=== PATIENT | male | born 1980 | race Caucasian/White ===

== ENCOUNTER 2016-05-17 10:23 | Outpatient (CLI) | payer OTHER | END 2016-05-17 10:24 | disposition home or self-care (01) | DX: Z00.00 Encounter for general adult medical examination without abnormal findings (principal); K58.9 Irritable bowel syndrome, unspecified ==

== ENCOUNTER 2017-09-28 09:34 | Outpatient (CLI) | payer OTHER ==
[2017-09-28 13:11] LABS: BASOPHILS % (AUTO) 0.5 %; EOSINOPHILS % (AUTO) 0.7 %; LYMPHOCYTES # (AUTO) 1.7 10^3/uL (1.5-3.5); LYMPHOCYTES % (AUTO) 26.7 %; MEAN CORPUSCULAR HEMOGLOBIN 30.4 pg (27.0-31.0); MEAN CORPUSCULAR HGB CONC 34.7 g/dL (32.0-36.0); MEAN CORPUSCULAR VOLUME 87.6 fL (80.0-94.0); MEAN PLATELET VOLUME 11.2 fL (7.4-11.4); MONOCYTES # (AUTO) 0.5 10^3/uL (0.0-1.0); MONOCYTES % (AUTO) 7.8 %; NEUTROPHILS # (AUTO) 4.1 10^3/uL (1.5-6.6); NEUTROPHILS % (AUTO) 64.3 %; PLT - PLATELET COUNT 148 10^3/uL (130-450); RED BLOOD COUNT 5.58 10^6/uL (4.70-6.10); WHITE BLOOD COUNT 6.3 x10^3/uL (4.8-10.8)
[2017-09-28 13:33] LABS: ALBUMIN 4.3 g/dL (3.2-5.5); ALBUMIN/GLOBULIN RATIO 1.5 (1.0-2.2); ALKALINE PHOSPHATASE 63 IU/L (42-121); ALT ALANINE AMINOTRANSFERASE 24 IU/L (10-60); AST ASPARTATE AMINOTRANSFERASE 29 IU/L (10-42); BILIRUBIN,TOTAL 0.8 mg/dL (0.2-1.0); BUN - BLOOD UREA NITROGEN 14 mg/dL (6-20); CALCIUM 9.1 mg/dL (8.5-10.3); CARBON DIOXIDE - CO2 23 mmol/L (21-32); CHLORIDE 104 mmol/L (101-111); CHOL/HDL RATIO 4.8 (<5.0); CHOLESTEROL 171 mg/dL; CREATININE 0.9 mg/dL (0.6-1.2); GFR - MDRD 94 (>89); GLUCOSE 127 mg/dL (70-100); HDL CHOLESTEROL 36 mg/dL; SODIUM 136 mmol/L (135-145); TOTAL PROTEIN 7.2 g/dL (6.7-8.2)
[2017-09-28 13:55] LABS: LDL CHOLESTEROL,DIRECT 68 mg/dL; LDLD/HDL RATIO 1.9 (<3.6)
[2017-10-02 11:27] LABS: HB2 TOTAL 18.9 g/dL; HEMOGLOBIN A1C 0.61 g/dL; HEMOGLOBIN A1C % 5.1 % (4.6-6.2)
== END 2017-09-28 09:35 | disposition home or self-care (01) ==
LOC: LAB.WCP 09:34
PROVIDERS: ATTEND Physician Assistant Medical
DX: Z00.00 Encounter for general adult medical examination without abnormal findings (principal); R73.9 Hyperglycemia, unspecified
CPT/HCPCS: 36415; 80053; 80061; 83036; 83721; 84443; 85025

== ENCOUNTER 2019-06-02 07:31 | Outpatient (CLI) | payer OTHER ==
[2019-06-02 12:09] LABS: BASOPHILS % (AUTO) 0.7 %; EOSINOPHILS # (AUTO) 0.1 10^3/uL (0.0-0.7); EOSINOPHILS % (AUTO) 1.5 %; HGB - HEMOGLOBIN 15.8 g/dL (14.0-18.0); LYMPHOCYTES # (AUTO) 1.5 10^3/uL (1.5-3.5); LYMPHOCYTES % (AUTO) 33.2 %; MEAN CORPUSCULAR HEMOGLOBIN 30.6 pg (27.0-31.0); MEAN CORPUSCULAR HGB CONC 33.7 g/dL (32.0-36.0); MEAN CORPUSCULAR VOLUME 90.9 fL (80.0-94.0); MEAN PLATELET VOLUME 12.7 fL (7.4-11.4); MONOCYTES # (AUTO) 0.4 10^3/uL (0.0-1.0); MONOCYTES % (AUTO) 9.2 %; NEUTROPHILS # (AUTO) 2.5 10^3/uL (1.5-6.6); NEUTROPHILS % (AUTO) 55.2 %; PLT - PLATELET COUNT 168 10^3/uL (130-450); RED BLOOD COUNT 5.16 10^6/uL (4.70-6.10); RED CELL DISTRIBUTION WIDTH 12.3 % (12.0-15.0); WHITE BLOOD COUNT 4.6 x10^3/uL (4.8-10.8)
[2019-06-02 13:04] LABS: ALBUMIN 4.1 g/dL (3.2-5.5); ALBUMIN/GLOBULIN RATIO 1.5 (1.0-2.2); ALKALINE PHOSPHATASE 47 IU/L (42-121); ALT ALANINE AMINOTRANSFERASE 23 IU/L (10-60); AST ASPARTATE AMINOTRANSFERASE 22 IU/L (10-42); BILIRUBIN,TOTAL 0.8 mg/dL (0.2-1.0); BUN - BLOOD UREA NITROGEN 14 mg/dL (6-20); CALCIUM 8.9 mg/dL (8.5-10.3); CARBON DIOXIDE - CO2 25 mmol/L (21-32); CHLORIDE 103 mmol/L (101-111); CHOL/HDL RATIO 3.5 (<5.0); CHOLESTEROL 152 mg/dL; CREATININE 0.9 mg/dL (0.6-1.2); GFR - MDRD 93 (>89); GLUCOSE 100 mg/dL (70-100); HDL CHOLESTEROL 43 mg/dL; LDL CHOLESTEROL,CALCULATED 90 mg/dL; LDL/HDL RATIO 2.1 (<3.6); SODIUM 136 mmol/L (135-145); TOTAL PROTEIN 6.8 g/dL (6.7-8.2); VLDL CHOLESTEROL 19 mg/dL
== END 2019-06-02 23:59 | disposition home or self-care (01) ==
LOC: LAB.WCP 07:31
PROVIDERS: ATTEND Physician Assistant Medical
DX: Z00.00 Encounter for general adult medical examination without abnormal findings (principal)
CPT/HCPCS: 36415; 80053; 80061; 83721; 84443; 85025

== ENCOUNTER 2020-03-10 08:00 | Outpatient (CLI) | payer OTHER | END 2020-03-10 23:59 | disposition home or self-care (01) | LOC: LAB.WCP 08:00 | PROVIDERS: ATTEND Physician Assistant Medical | DX: Z11.1 Encounter for screening for respiratory tuberculosis (principal) | CPT/HCPCS: 36415; 81599; 86480 ==

== ENCOUNTER 2021-07-18 07:02 | Day surgery (SDC) | payer OTHER ==
[2021-07-18] MEDS ORDERED: LACTATED RINGERS 1,000 ML IV ONE (07:24)
--- NOTE | 2021-07-18 08:01 | ANESTHESIA ---
Pre-Anesthesia VS, & Labs - Diagnosis Hemorrhoids - Procedure Hemorrhoid banding Vital Signs: Temp Pulse Resp BP Pulse Ox 36.3 C L 85 14 129/75 97 07/18/21 07:16 07/18/21 07:16 07/18/21 07:16 07/18/21 07:16 07/18/21 07:16 Height: 5 ft 5 in Weight (kg): 73.9 kg Body Mass Index: 27.1 BMI Classification: Overweight - NPO >8 hours - Lab Results Lab results reviewed: Yes Home Medications and Allergies Diphenoxylate/Atropine [Lomotil] 1 mg ORAL QID PRN 02/04/14 Allergies/Adverse Reactions: Allergies Allergy/AdvReac Type Severity Reaction Status Date / Time No Known Drug Allergies Allergy Verified 07/18/21 06:14 Anes History & Medical History - Anesthetic History Anesthesia Complications: reports: No previous complications Family history of Anesthesia Complications: Denies Family history of Malignant Hyperthermia: Denies - Medical History Cardiovascular: reports: None Pulmonary: reports: None Gastrointestinal: reports: Chronic diarrhea, Hemorrhoids, Other Urinary: reports: None Musculoskeletal: reports: None Endocrine/Autoimmune: reports: None Skin: reports: None Smoking Status: Current every day smoker Psychosocial: reports: Alcohol (3-4 beers a night) - Surgical History General: reports: Colonoscopy Exam General: Alert, Oriented x3, Cooperative, No acute distress Dental: WNL Mouth Openin Fingerbreadth Neck Mobility: Normal Mallampati classification: II Plan Anesthesia Type: General, Total IV Consent for Procedure(s) Verified and Reviewed: Yes Code Status: Attempt Resuscitation ASA classification: 2-Mild systemic disease Is this case an emergency?: No
[2021-07-18] MEDS ORDERED: LIDOCAINE 2%-EPI 1:100000 20 ML MDV SUBQ ONE ×2 (08:24)
[2021-07-18] MEDS ORDERED: BUPIVACAINE 0.5% PF 30 ML VIAL INFIL ONE ×2 (08:24)
[2021-07-18] MEDS ORDERED: BUPIVACAINE 0.5% PF 10 ML VIAL ONE (08:30)
[2021-07-18] MEDS ORDERED: LIDOCAINE OINTMENT 5% 35.44 GM TUBE ONE (08:30)
[2021-07-18] MEDS ORDERED: LIDOCAINE 2%-EPI 1:100000 20 ML MDV ONE (08:30)
[2021-07-18] MEDS ORDERED: KETAMINE 500 MG/10 ML VIAL ONE (08:35)
[2021-07-18] MEDS ORDERED: MIDAZOLAM 2 MG/2 ML VIAL ONE (08:35)
[2021-07-18] MEDS ORDERED: PROPOFOL 200 MG/20 ML VIAL IVP ONE ×2 (08:35)
[2021-07-18] MEDS ORDERED: SODIUM CHLORIDE 0.9% 10 ML VIAL IVP ONE (08:35)
--- NOTE | 2021-07-18 09:06 | OPERATIVE REPORT ---
Operative Report - General Procedure Date: 07/18/21 Planned Procedure: Examination under anesthesia with hemorrhoid banding Pre-Op Diagnosis: Symptomatic internal hemorrhoids Procedure Performed: Examination under anesthesia with hemorrhoid banding Post Op Diagnosis: Same - Procedure Note Primary Surgeon: Gely Anesthesia Provider: ARYA Maldonado Anesthesia Technique: Local, MAC Pathology: None Estimated Blood Loss (mL): 2 Indications: Symptomatic internal hemorrhoids Findings: 1 very large prolapsing internal hemorrhoid at the 12:00 radian with the patient in lithotomy position. 2 other smaller complexes at 7:00 and 4:00 respectively. Complications: None apparent - Other Other Information/Narrative: After obtaining informed consent, the patient was brought to the operating room and placed in supine position on the operating table. Following successful induction of anesthesia, appropriate padding of all bony prominences, and placement of appropriate monitors, the legs were placed in candycane stirrups to create lithotomy position. The perianal region was prepped and draped in the standard surgical fashion. A timeout was held per scope protocol. All elements of the surgical safety checklist were followed before, during, and after this procedure. The anoscope with obturator was lubricated and placed in the patient's anal canal. I immediately visualize a large prolapsing complex of internal hemorrhoid tissue at the 12:00 radian. This tissue was grasped with a forcep and a band placed at its base. I was able to verify excellent placement of the tissue with distention and blanching of the involved hemorrhoid. Further evaluation revealed a second complex at the 7:00 radian that was significantly smaller than the first but also somewhat enlarged. This complex was grasped with a forcep and using the banding instrument the tissue was captured with in a single band. Again I was able to verify excellent placement. At the 4:00 radian there was significantly smaller complex but the tissue did appear to be somewhat distended and irritated. This was again grasped with the forceps and a third band applied to this area of the tissue. Again I was able to verify the band was in good position.There was no bleeding noted from the anal canal. Local anesthetic was then placed in the perianal tissue and a Gelfoam pack coated with lidocaine ointment placed in the anal canal.The obturator was removed and the slots aligned to allow access to 3 column internal hemorrhoids. The anoscope was removed and the procedure concluded.The patient tolerated the procedure well. She was allowed awaken from sedation and taken to the postanesthesia care unit in good condition.
[2021-07-18] MEDS ORDERED: MORPHINE 2 MG/ML CARPUJECT IVP PRN (09:07)
[2021-07-18] MEDS ORDERED: NALOXONE 0.4 MG/ML VIAL IVP PRN (09:07)
[2021-07-18] MEDS ORDERED: METOCLOPRAMIDE 10 MG/2 ML VIAL IVP PRN (09:07)
[2021-07-18] MEDS ORDERED: ATROPINE ABBOJECT 1 MG/10 ML SYRINGE IVP PRN (09:07)
[2021-07-18] MEDS ORDERED: HYDROmorphone 0.5 MG/0.5 ML SYRINGE IVP PRN (09:07)
[2021-07-18] MEDS ORDERED: ePHEDrine 50 MG/ML VIAL IVP PRN (09:07)
[2021-07-18] MEDS ORDERED: fentaNYL 100 MCG/2 ML VIAL IVP PRN (09:07)
[2021-07-18] MEDS ORDERED: ONDANSETRON 4 MG/2 ML VIAL IVP PRN ×2 (09:07→09:11)
[2021-07-18] MEDS ORDERED: LACTATED RINGERS 650 ML IV ONE (09:10)
[2021-07-18 09:52] VITALS: BP 112/78
[2021-07-18] MEDS ORDERED: LACTATED RINGERS 1,000 ML IV SCH (10:00)
--- NOTE | 2021-07-18 13:01 | ANESTHESIA POST OP EVALUATION ---
Anesthesia Post Eval - Post Anesthesia Eval Vitals: Last Vital Signs Temp 36.6 C 07/18/21 09:50 Pulse 65 07/18/21 09:50 Resp 16 07/18/21 09:50 BP 112/78 07/18/21 09:50 Pulse Ox 100 07/18/21 09:50 CV Function Including HR & BP: Stable Pain Control: Satisfactory Nausea & Vomiting: Negative Mental Status: Baseline Respiratory Status: Airway Patent Hydration Status: Satisfactory Anesthesia Complications: None
== END 2021-07-18 07:03 | disposition home or self-care (01) ==
LOC: SDS 07:02
PROVIDERS: ATTEND Surgery
DX: K64.8 Other hemorrhoids (principal); F17.200 Nicotine dependence, unspecified, uncomplicated
CPT/HCPCS: 46221; A9270; J7120